=== PATIENT | female | born 1955 | race Caucasian/White ===

== ENCOUNTER 2017-05-11 10:30 | Outpatient (RCR) | payer BC ==
[~2017-05-11 10:30] MED LIST: EPIPEN 2-PAK1 MG/ML IM; PEPCID 20MG TAB20 MG PO; PREDNISONE20 MG PO
== END 2017-05-19 09:07 ==
LOC: WSPT 10:30
DX: M19.012 Primary osteoarthritis, left shoulder (principal); G24.9 Dystonia, unspecified; Z98.890 Other specified postprocedural states

== ENCOUNTER → 2017-08-26 | Outpatient (CLI) | payer BC | LOC: MC.RAD 10:00 | DX: Z12.31 Encounter for screening mammogram for malignant neoplasm of breast (principal) ==

== ENCOUNTER 2017-08-27 09:30 | Outpatient (RCR) | payer BC | END 2017-09-09 | disposition home or self-care (01) | LOC: WSPT | DX: M19.012 Primary osteoarthritis, left shoulder (principal); M19.011 Primary osteoarthritis, right shoulder; M75.42 Impingement syndrome of left shoulder; M75.21 Bicipital tendinitis, right shoulder; M75.22 Bicipital tendinitis, left shoulder; M75.51 Bursitis of right shoulder; M25.311 Other instability, right shoulder; Z98.890 Other specified postprocedural states ==

== ENCOUNTER 2017-09-10 13:09 | Outpatient (RCR) | payer BC | END 2017-12-09 | disposition home or self-care (01) | LOC: WSPT | DX: M19.012 Primary osteoarthritis, left shoulder (principal); M19.011 Primary osteoarthritis, right shoulder; M75.21 Bicipital tendinitis, right shoulder; M75.22 Bicipital tendinitis, left shoulder; M75.42 Impingement syndrome of left shoulder; M75.51 Bursitis of right shoulder; M25.311 Other instability, right shoulder ==

== ENCOUNTER 2018-04-23 09:24 | Day surgery (SDC) | payer BC ==
[~2018-04-23] VITALS: Ht 160 cm; Wt 58.1 kg
[2018-04-23 09:47] VITALS: BP 99/67; PULSE 73; TEMP 98.3
[2018-04-23] MEDS ORDERED: SINEMET 25/101 UDTAB PO (10:11)
[2018-04-23] MEDS ORDERED: MIRAPEX0.5 MG PO (10:12)
[2018-04-23] MEDS ORDERED: REMERON 15M15 MG/TA1 PO (10:12)
[2018-04-23] MEDS ORDERED: MASON NATURAL2000 IU PO (10:13)
[2018-04-23] MEDS ORDERED: MULTI VITAMINS1 TAB PO (10:13)
[2018-04-23 11:00] VITALS: BP 90/57; PULSE 69; TEMP 98.3
[2018-04-23 11:15] VITALS: BP 94/54; PULSE 56
[2018-04-23 11:30] VITALS: BP 89/63; PULSE 53
[2018-04-23 11:45] VITALS: BP 92/54; PULSE 56
== END 2018-04-23 12:10 | disposition home or self-care (01) ==
LOC: SDCO 09:24
DX: Z12.11 Encounter for screening for malignant neoplasm of colon (principal); K64.0 First degree hemorrhoids; G20 Parkinson's disease; Z86.010 Personal history of colon polyps
CPT/HCPCS: J2250; J2405; J3010

== ENCOUNTER 2018-05-13 13:45 | Outpatient (RCR) | payer BC ==
[~2018-05-13 13:45] MED LIST changes: +MASON NATURAL2000 IU PO; +MIRAPEX0.5 MG PO; +MULTI VITAMINS1 TAB PO; +REMERON 15M15 MG/TA1 PO; +SINEMET 25/101 UDTAB PO
== END 2018-06-16 16:36 | disposition home or self-care (01) ==
LOC: WSPT 13:45
DX: M54.17 Radiculopathy, lumbosacral region (principal)

== ENCOUNTER → 2018-09-14 | Outpatient (CLI) | payer BC | LOC: MC.RAD 09:04 | DX: Z12.31 Encounter for screening mammogram for malignant neoplasm of breast (principal) ==

== ENCOUNTER 2023-03-27 12:00 | Outpatient (RCR) | payer BC | END 2023-04-09 | disposition home or self-care (01) | LOC: MKS.ESL.PT | DX: M25.511 Pain in right shoulder (principal) ==

== ENCOUNTER → 2023-05-18 13:59 | Outpatient (RCR) | payer BC | LOC: MKS.ESL.PT 04-10 11:00 | DX: M25.511 Pain in right shoulder (principal) ==